=== PATIENT | female | born 1975 ===

== ENCOUNTER 2017-09-10 09:30 | Inpatient (IN) | payer OTHER ==
[~2017-09-10] VITALS: Ht 157.5 cm; Wt 59.0 kg
[~2017-09-10 09:30] MED LIST: ULTRACET PO
[2017-09-14] MEDS ORDERED: OXYC1TAB9 PO (15:54)
== END 2017-09-14 16:47 | disposition home or self-care (01) | DRG 743 ==
LOC: O/R 09-12 06:15 → OB/GYN 09-12 06:15 → SURG 09-12 09:30 → OB/GYN 09-12 14:38
PROVIDERS: Specialist
PROC: 0UT90ZZ Resection of Uterus, Open Approach (ICD-10-PCS; principal; 2017-09-12 11:45)
DX: D25.1 Intramural leiomyoma of uterus (principal); N72 Inflammatory disease of cervix uteri